=== PATIENT | male | born 1985 | race Caucasian/White ===

== ENCOUNTER 2019-02-24 07:35 | Day surgery (SDC) | payer BC ==
[~2019-02-24 07:35] MED LIST: Midazolam 1 MG/ML 2 ML SDV ONE; Propofol 200 MG/20 ML SDV ONE; fentaNYL 100 MCG/2 ML SDV ONE
[2019-02-24] MEDS ORDERED: Dextrose 5%-Lactated Ringers 1,000 ML IV SCH (07:40)
[2019-02-24] MEDS ORDERED: Glycopyrrolate 0.2 MG/ML 2 ML SDV IVPUSH ONE (07:40)
[2019-02-24] MEDS ORDERED: Pantoprazole 40 MG Vial IVPUSH ONE (09:02)
--- NOTE | 2019-03-01 14:19 | OR ---
DATE OF PROCEDURE: 02/24/2019 SURGEON: Abimael Cohen MD PREOPERATIVE DIAGNOSIS: Probable gastroesophageal reflux disease. POSTOPERATIVE DIAGNOSIS: Severe ulcerated gastroesophageal reflux disease. OPERATIVE PROCEDURE: Upper gastrointestinal endoscopy with biopsy of the esophagogastric junction. ANESTHESIA: IV sedation. INDICATION FOR PROCEDURE: This is a 33-year-old presenting with worsening gastroesophageal reflux symptoms. Prior to this, medical management including omeprazole and oral antacids has generally been satisfactory, but over the last few months, it has become quite ineffective, and thus, the patient will undergo an upper endoscopy with biopsies as indicated. Potential risks including bleeding and perforation were discussed, and the patient wishes to proceed. DETAILS OF PROCEDURE: The patient was taken to the operating room and placed in a left lateral decubitus position. IV sedation was administered, after which the upper GI endoscope was passed orally through the length of the esophagus into the stomach with retroflexion view of the fundus, and thereafter, through the pyloric channel and into the proximal duodenum. Findings included some reddening of the hypopharynx and larynx. The upper esophageal sphincter and esophageal body were unremarkable. As one approached the EG junction, the patient had striking ulcerated gastroesophageal reflux disease with several linear ulcers extending up from the esophagogastric junction. These were covered with fibrinous exudate with a roughly 3 cm hiatal hernia. There was no plaquing, stricturing, otherwise to suggest a neoplastic change. The remainder of the stomach and duodenal exams were unremarkable. At this point, biopsies were obtained at several levels of the area of the ulcerated esophagitis, and minimal bleeding from the biopsy sites was seen. The procedure was then concluded. The patient came to the initial consult with the intention of undergoing an antireflux procedure, and this will be scheduled this coming . This had been discussed earlier with the patient and will be discussed later today as well as prior to scheduled surgery this coming . We will track the pathology report prior to initiating surgery on to make sure we are not dealing with anything neoplastic. Abimael Cohen MD /[id number]
== END 2019-02-24 10:16 | disposition home or self-care (01) ==
LOC: JP.SDS 07:35
PROVIDERS: ATTEND Surgery
DX: K21.0 Gastro-esophageal reflux disease with esophagitis (principal); K22.10 Ulcer of esophagus without bleeding; K44.9 Diaphragmatic hernia without obstruction or gangrene; J39.2 Other diseases of pharynx; J38.7 Other diseases of larynx; Z88.0 Allergy status to penicillin; Z88.8 Allergy status to other drugs, medicaments and biological substances; Z79.899 Other long term (current) drug therapy
CPT/HCPCS: 43239; 88305; C9113; J2250; J2704; J3010; J3490; J7042

== ENCOUNTER 2019-02-27 08:08 | Inpatient (IN) | payer BC ==
[~2019-02-27 08:08] MED LIST changes: -Midazolam 1 MG/ML 2 ML SDV ONE; -Propofol 200 MG/20 ML SDV ONE; -fentaNYL 100 MCG/2 ML SDV ONE; +fentaNYL 250 MCG/5 ML SDV ONE
[2019-02-27] MEDS ORDERED: Rocuronium 50 MG/5 ML Vial ONE ×2 (08:09→11:15)
[2019-02-27] MEDS ORDERED: Propofol 200 MG/20 ML SDV ONE (08:09)
[2019-02-27] MEDS ORDERED: Succinylcholine 200 MG/10 ML MDV ONE (08:09)
[2019-02-27] MEDS ORDERED: Dexamethasone 4 MG/ML SDV ONE (08:09)
[2019-02-27] MEDS ORDERED: Glycopyrrolate 0.2 MG/ML 5 ML MDV ONE (08:09)
[2019-02-27] MEDS ORDERED: Neostigmine Methylsulfate 1 MG/ML 5 ML Syringe ONE (08:09)
[2019-02-27] MEDS ORDERED: Ondansetron 4 MG/2 ML SDV ONE (08:09)
[2019-02-27] MEDS ORDERED: Dextrose 5%-Lactated Ringers 1,000 ML IV SCH (08:45)
[2019-02-27] MEDS ORDERED: fentaNYL 250 MCG/5 ML SDV ONE (10:10)
[2019-02-27] MEDS ORDERED: Ketamine 500 MG/5 ML MDV IV SCH (10:15)
[2019-02-27] MEDS ORDERED: ceFAZolin 2 GM in Premix Bag 1 BAG IV ONE (10:15)
[2019-02-27] MEDS ORDERED: Ketamine 50 MG in Sodium Chloride 0.9% 49.5 ML IV SCH (10:15)
[2019-02-27] MEDS ORDERED: Lactated Ringers 1,000 ML ONE (11:15)
[2019-02-27] MEDS ORDERED: HYDROmorphone 0.5 MG/0.5 ML Syringe IVPUSH PRN (12:48)
[2019-02-27] MEDS ORDERED: Ondansetron 4 MG/2 ML SDV IVPUSH PRN (12:48)
[2019-02-27] MEDS ORDERED: HYDROmorphone 1 MG/ML Syringe IV PRN (12:48)
[2019-02-27] MEDS: Metoclopramide 10 MG/2 ML SDV IV SCH ×2 (13:51→20:50)
[2019-02-27] MEDS ORDERED: Pantoprazole 40 MG Vial IV SCH (16:00)
[2019-02-27] MEDS: Dextrose 5%-Lactated Ringers 1,000 ML IV SCH ×2 (16:29→23:37)
[2019-02-27] MEDS: ceFAZolin 2 GM in Premix Bag 1 BAG IV SCH (16:33)
[2019-02-27] MEDS: methylPREDNISolone Sodium Succinate 125 MG/2 ML SDV IV SCH (17:05)
[2019-02-28] MEDS: ceFAZolin 2 GM in Premix Bag 1 BAG IV SCH ×2 (00:01→08:12)
[2019-02-28] MEDS: Metoclopramide 10 MG/2 ML SDV IV SCH ×2 (01:36→08:10)
[2019-02-28] MEDS: methylPREDNISolone Sodium Succinate 125 MG/2 ML SDV IV SCH (05:03)
[2019-02-28] MEDS: Dextrose 5%-Lactated Ringers 1,000 ML IV SCH (06:26)
[2019-02-28] MEDS ORDERED: Dextrose 5%-Lactated Ringers 1,000 ML IV SCH (07:15)
[2019-02-28] MEDS ORDERED: HYDROmorphone 2 MG Tab PO PRN (07:16)
--- NOTE | 2019-02-28 13:56 | PN ---
DATE OF SERVICE: 02/28/2019 SUBJECTIVE: Magdy is postoperative day 1. Vital signs have been stable. Pain is controlled. He has been n.p.o. with ice chips only. Urine output 2400. REVIEW OF SYSTEMS: Remainder of review of systems negative for any pertinent positives and negatives. OBJECTIVE: GENERAL: Magdy Griffith is a 33-year-old male. VITAL SIGNS: TPR is 98.3, 76, 16 and blood pressure is 112/61. HEENT: Negative. NECK: Supple. HEART: Regular rate and rhythm. LUNGS: Clear. ABDOMEN: Dressing dry and intact. Abdominal binder is on. EXTREMITIES: Without peripheral edema. ASSESSMENT: Laparoscopic Gonzalez fundoplication. PLAN: Decrease IV to 100 mL per hour. Dietary consult. Dilaudid 2 mg 1 to 2 every 4 hours p.r.n. pain. Full liquid diet. Dressing off, may shower. We will evaluate p.r.n. or in a.m. Eliana Andrade PA-C /[id number]
--- NOTE | 2019-03-06 07:59 | OR ---
DATE OF PROCEDURE: 02/27/2019 SURGEON: Abimael Cohen MD PREOPERATIVE DIAGNOSIS: Gastroesophageal reflux disease refractory to medical management. POSTOPERATIVE DIAGNOSES: 1. 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 2. Mediastinal lipoma. OPERATIVE PROCEDURES: Diagnostic laparoscopy with: 1. Repair of paraesophageal diaphragmatic hernia with mesh with Gonzalez fundoplication (22337). 2. Excision of mediastinal lipoma (62724). ANESTHESIA: General. RESPIRATORY TECHNICIAN: Eliana Andrade PA-C. INDICATIONS FOR PROCEDURE: This is a 33-year-old male presenting with gastroesophageal reflux disease, which has become refractory to medical management. After preoperative evaluation and discussion, he wished to proceed with a Gonzalez fundoplication. Potential risks including bleeding, infection, injury to underlying viscera, problems with recurrence of the reflux over time, or other problems such as dysphagia, gas bloat syndrome, disorders of gastric emptying rate were all reviewed, and the patient wishes to proceed. DETAILS OF PROCEDURE: The patient was taken to the operating room and placed in a supine position. After general endotracheal anesthesia was induced, he was converted to a lithotomy position and the abdomen prepped and draped. At 15 cm inferior and 5 cm left of the xiphoid process, a transverse incision was made and the peritoneal cavity entered under direct vision with an Optiview trocar inflated to 15 mmHg pressure with CO2. Laparoscope was then inserted. No underlying trocar insertion site injuries were seen. Following this, 4 additional 5 mm trocars were placed across the upper and mid abdomen. General exploration was undertaken. As the liver was elevated, the patient was noted to have significant paraesophageal diaphragmatic hernia with prolapse of a portion of the perigastric fat, gastric fundus, and some omentum in a plane anterolateral to the course of the esophagus. This was reduced, and the peritoneal cavity overlying it was incised and reflected downward. The distal esophagus was eventually circumferentially dissected from the right and left crura. There was quite a bit of thickening and inflammation in this area, and eventually the 5 cm length of intraabdominal esophagus was dissected free. During the course of dissection, mediastinal lipoma was encountered and excised to facilitate a more adequate closure of the crura. The crural repair was then accomplished with some 0 Ethibond sutures reinforced with PTFE pledgets and then with a Phasix ST mesh. This was cut such that it would lie across the floor of the crural repair and alongside of the crura on each side and was fixed with some titanium tacking screws. At this point, the greater curvature of the stomach was divided from the omentum. This dissection continued proximally across the short gastric vessels up into and through the highest posterior gastric vessels, until the entire fundus was well freed up. The fundus was then retrieved through the retroesophageal window. Anesthesia then passed a guidewire orally through the length of the esophagus into the stomach. Over this, a 54-Upper Sorbian Savary dilator was placed. A 3-stitch 2 cm fundoplication was then accomplished with 0 Ethibond sutures with each of the bites including the underlying esophagus, all fixed in position. Two additional sutures between the fundoplication and the diaphragm with the same stitch- pledget combination were then placed to help maintain the fundoplication in a non-slipped position. At this point, no further problems were noted. The dilator and wire were removed. Fundoplication was found to be satisfactorily floppy. At that point, no further problems were noted. Trocars were removed and the peritoneal cavity deflated. Incisions were closed with some 4-0 Vicryl stitch, and the patient was taken to the recovery room in satisfactory condition. Bilateral transversus abdominis plane blocks had also been placed earlier in the case. Physician showroom sales assistant, Eliana Andrade, played an essential role in assisting in this case, helping to position the patient, retract structures as needed, as well as suturing and cutting sutures when indicated. Her presence improved the patient's safety and decreased operative time. Abimael Cohen MD /[id number]
--- NOTE | 2019-03-06 08:42 | DISCH ---
ADMISSION DIAGNOSIS: Gastroesophageal reflux disease refractory to medical management. DISCHARGE DIAGNOSES: 1. Diagnostic laparoscopy with: a. Repair of paraesophageal diaphragmatic hernia with mesh with Gonzalez fundoplication. b. Excision of mediastinal lipoma for paraesophageal diaphragmatic hernia associated with gastroesophageal reflux refractory to medical management. 2. Mediastinal lipoma. HISTORY: Magdy is a 33-year-old male, presenting with gastroesophageal reflux disease, which has become refractory to medical management. After preoperative evaluation, discussion of possible risks and possible complications, he wished to proceed with surgical procedure. HOSPITAL COURSE: Magdy had his surgery on 02/27/2019. He had no operative complications. On postoperative day #1, he received dietary instruction, tolerated a full liquid diet, pain was well managed, vital signs were stable, and he is able to be discharged to home. PHYSICAL EXAMINATION: GENERAL: Magdy Griffith is a 33-year-old male. VITAL SIGNS: Height 5 feet 10.87 inches, weight is 226 pounds. TPR 98.3, 76, 16, blood pressure 112/61. HEENT: Negative. NECK: Supple. HEART: Regular rate and rhythm. LUNGS: Clear. ABDOMEN: Dressings dry and intact. Abdominal binder is on. EXTREMITIES: Without peripheral edema. DISPOSITION: Discharged to home. CONDITION: Stable and improving. FOLLOWUP APPOINTMENT: 1. With Abimael Cohen MD. Appointment is not on the chart. DISCHARGE MEDICATIONS: Dilaudid 2 mg p.o. q.4 hours p.r.n. pain #42. Resume home medications. DIET: Full liquid diet for 2 weeks. ACTIVITY: Other activity: Walk 6 times daily inside your home. Lifting: Do not lift over 10 pounds for 2 weeks. May shower. Do not drive for 1 week and while on pain medication. Use incentive spirometer 10 times every hour while awake. Wear abdominal binder for 2 weeks. DISCHARGE INSTRUCTIONS: Notify provider if any fever, increased pain, nausea, or vomiting.
== END 2019-02-28 13:37 | disposition home or self-care (01) | DRG 220 ==
LOC: JP.SDS 08:08 → JP.MS 08:08 → EDSTATUS 11:30 → JP.ICU 12:37
PROVIDERS: ADMIT Surgery; ATTEND Surgery
PROC: 0DQ44ZZ Repair Esophagogastric Junction, Percutaneous Endoscopic Approach (ICD-10-PCS; principal; 2019-02-27)
PROC: 0WBC4ZZ Excision of Mediastinum, Percutaneous Endoscopic Approach (ICD-10-PCS; 2019-02-27)
DX: K21.9 Gastro-esophageal reflux disease without esophagitis (principal); Z88.0 Allergy status to penicillin; Z88.8 Allergy status to other drugs, medicaments and biological substances
CPT/HCPCS: 36415; 80048; 85027; 88304; C1713; C1781; C9113; J0171; J0330; J0690; J1100; J1170; J2405; J2704; J2710; J2765; J2795; J2930; J3010; J3490; J7042; J7050; J7120